=== PATIENT | male | born 1995 | race African-American/Black ===

== ENCOUNTER 2018-11-17 17:40 | Emergency (ER) | payer SELFPAY ==
[2018-11-17 17:47] VITALS: BP 129/65
[2018-11-17] MEDS ORDERED: IBUPROFEN 800 MG TABLET PO ONE (19:01)
--- NOTE | 2018-11-17 19:05 | ER Document Report ---
HPI - HPI Patient complains to provider of: Low back pain Time Seen by Provider: 11/17/18 18:46 Onset: This morning Onset/Duration: Sudden Quality of pain: Achy Severity: Moderate Pain Level: 3 Context: Patient presents emergency department with complaints of low left-sided back pain. Reports he was playing basketball then he started hurting his back. Denies other symptoms such as fever vomiting diarrhea denies urinary bowel incontinence or retention. Denies past medical history of injury. Associated Symptoms: None Exacerbated by: Denies Relieved by: Denies Similar symptoms previously: No Recently seen / treated by doctor: No Past Medical History - General Information source: Patient - Social History Smoking Status: Unknown if Ever Smoked Cigarette use (# per day): No Frequency of alcohol use: None Drug Abuse: None Occupation: [employer] Family History: None Patient has suicidal ideation: No Patient has homicidal ideation: No - Medical History Medical History: Negative Surgical Hx: Negative Vertical Provider Document - CONSTITUTIONAL Agree With Documented VS: Yes Exam Limitations: No Limitations General Appearance: WD/WN, No Apparent Distress - INFECTION CONTROL TRAVEL OUTSIDE OF THE [place] IN LAST 30 DAYS: No - HEENT HEENT: Atraumatic, Normocephalic - NECK Neck: Normal Inspection, Supple - RESPIRATORY Respiratory: No Respiratory Distress - CARDIOVASCULAR Cardiovascular: Regular Rate - GI/ABDOMEN Gastrointestinal: Abdomen Soft, Abdomen Non-Tender - BACK Back: Normal Inspection - No obvious deformity no erythema no swelling no warmth good distal movement and sensation no weakness reflexes normal - MUSCULOSKELETAL/EXTREMETIES Musculoskeletal/Extremeties: MAEW, FROM - NEURO Level of Consciousness: Awake, Alert, Appropriate Motor/Sensory: No Motor Deficit - DERM Integumentary: Warm, Dry Adult Front & Back Diagram: 1 - reports low back pain Course - Re-evaluation Re-evalutation: 11/17/18 19:05 Patient was instructed on ibuprofen for pain rest avoid basketball for the next few days. He verbalized understanding to all instructions Dictation of this chart was performed using voice recognition software; therefore, there may be some unintended grammatical errors. - Vital Signs Vital signs: Temp Pulse Resp BP Pulse Ox 98.6 F 73 16 129/65 H 99 11/17/18 17:46 11/17/18 17:46 11/17/18 17:46 11/17/18 17:46 11/17/18 17:46 Discharge - Discharge Clinical Impression: Low back muscle strain Condition: Stable Disposition: HOME, SELF-CARE Instructions: Low Back Pain ([facility]), Muscle Strain ([facility]), Ice Packs ([facility]), Use of [id number] Ibuprofen ([facility]) Additional Instructions: *You have been evaluated for low back pain *Take Motrin as indicated *Rest/Ice- heat as directed-rest no basketball *Follow up with a primary care provider within 5 days for recheck *Return to ED for worsening condition, changes, needs Forms: Return to Work
== END 2018-11-17 19:10 | disposition home or self-care (01) ==
LOC: ER 17:40
DX: S39.012A Strain of muscle, fascia and tendon of lower back, initial encounter (principal); X58.XXXA Exposure to other specified factors, initial encounter
CPT/HCPCS: 99283

== ENCOUNTER 2018-11-30 06:44 | Emergency (ER) | payer OTHER ==
[2018-11-30 06:52] VITALS: BP 152/62
[2018-11-30] MEDS ORDERED: KETOROLAC TROMETHAMINE 60 MG/2 ML SDV IM ONE (07:43)
--- NOTE | 2018-11-30 07:47 | RADIOLOGY REPORT (SQ) ---
EXAM DESCRIPTION: XR WRIST 3 OR MORE VIEWS BILATERAL COMPLETED DATE/TME: 11/30/2018 00:00 CLINICAL HISTORY: 23 years Male, injury COMPARISON: None. Findings: Well corticated cortical step-off at the base of the second metacarpus seen on one view is probably developmental and related to growth plate variance. Bones, joints, and soft tissues of the RIGHT XR WRIST 3 OR MORE VIEWS BILATERAL appear otherwise unremarkable. IMPRESSION: Well corticated cortical step-off at the base of the second metacarpus is probably developmental and related to growth plate variance. Please correlate with focus of symptomatology and mechanism of injury.
--- NOTE | 2018-11-30 08:04 | ER Document Report ---
Entered by ESPERANZA DAVE SCRIBE 11/30/18 0757 Acting as scribe for:JOZEF OBREGON MD ED General - General Chief Complaint: Wrist Pain Stated Complaint: WRIST PAIN Time Seen by Provider: 11/30/18 07:31 Mode of Arrival: Ambulatory Information source: Patient Notes: Patient is a 23 year old male presenting to the emergency department complaining of right wrist pain onset 3 days ago. Patient states he works [employer] and noticed right wrist pain and swelling after work. He denies any other focal symptoms. TRAVEL OUTSIDE OF THE [place] IN LAST 30 DAYS: No - Related Data Allergies/Adverse Reactions: No Known Allergies Allergy (Unverified 11/17/18 17:45) Past Medical History - General Information source: Patient - Social History Smoking Status: Current Every Day Smoker Cigarette use (# per day): Yes - Reports Black and Milds Chew tobacco use (# tins/day): No Frequency of alcohol use: None Occupation: [employer] Family History: None Patient has suicidal ideation: No Patient has homicidal ideation: No Review of Systems - Review of Systems Constitutional: No symptoms reported EENT: No symptoms reported Cardiovascular: No symptoms reported Respiratory: No symptoms reported Gastrointestinal: No symptoms reported Genitourinary: No symptoms reported Male Genitourinary: No symptoms reported Musculoskeletal: See HPI Skin: No symptoms reported Hematologic/Lymphatic: No symptoms reported Neurological/Psychological: No symptoms reported -: Yes All other systems reviewed and negative Physical Exam - Vital signs Vitals: Temp Pulse Resp BP Pulse Ox 97.8 F 64 20 152/62 H 99 11/30/18 06:48 11/30/18 06:48 11/30/18 06:48 11/30/18 06:48 11/30/18 06:48 - Notes Notes: GENERAL: Alert, interacts well. No acute distress. HEAD: Normocephalic, atraumatic. EYES: Pupils equal, round, and reactive to light. Extraocular movements intact. ENT: Oral mucosa moist, tongue midline. NECK: Full range of motion. Supple. Trachea midline. LUNGS: Clear to auscultation bilaterally, no wheezes, rales, or rhonchi. No respiratory distress. HEART: Regular rate and rhythm. No murmurs, gallops, or rubs. ABDOMEN: Soft, non-tender. Non-distended. Bowel sounds present in all 4 quadrants. No guarding, rigidity, or rebound. EXTREMITIES: Moves all 4 extremities spontaneously. No edema, radial and dorsalis pedis pulses 2/4 bilaterally. No cyanosis. Dorsal medial and ulnar aspect tender to palpation. No tenderness to the anatomical snuffbox. No swelling appreciated. NEUROLOGICAL: Alert and oriented x3. Normal speech. PSYCH: Normal affect, normal mood. SKIN: Warm, dry, normal turgor. No rashes or lesions noted. Course - Vital Signs Vital signs: Temp Pulse Resp BP Pulse Ox 97.8 F 64 20 152/62 H 99 11/30/18 06:48 11/30/18 06:48 11/30/18 06:48 11/30/18 06:48 11/30/18 06:48 - Laboratory Result Diagrams: 11/30/18 08:06 11/30/18 08:06 Laboratory results interpreted by me: 11/30/18 11/30/18 08:06 08:06 Hgb 13.4 L RDW 14.6 H Lymphocytes % 45.2 H ALT 15 L - Diagnostic Test Radiology reviewed: Image reviewed, Reports reviewed - Right wrist x-ray does not show an acute process. 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 Discharge - Discharge Clinical Impression: Right wrist sprain Qualifiers: Encounter type: initial encounter Qualified Code(s): S63.501A - Unspecified sprain of right wrist, initial encounter Condition: Stable Disposition: HOME, SELF-CARE Additional Instructions: Sprained Wrist: Your injury is a sprain. A sprain results from stretching or tearing of the ligaments, usually from a twisting injury. The ligaments will require time and protection in order to heal properly. Many sprains are quite disabling and should be taken seriously. The usual initial treatment of sprains is cold packs, elevation, and rest of the injured area. Your physician has assessed the seriousness of your ligament injury, and has outlined a treatment plan. Understand that this treatment may change, depending on how you progress. If a re-examination was recommended, it is important that you follow up as instructed. Call the doctor any time if there is severe pain, numbness, or loss of function in the injured area. Use the wrist splint to protect your wrist and prevent it from moving up and down for the next week. Take ibuprofen 800 mg every 8 hours, or Aleve 2 tablets every 12 hours. Try not to use your right hand at all for the next several days. Follow-up with a local medical doctor if not improving. RETURN TO THE EMERGENCY ROOM IF ANY NEW OR WORSENING SYMPTOMS. Forms: Return to Work Scribe Attestation: 11/30/18 08:16 I personally performed the services described in the documentation, reviewed and edited the documentation which was dictated to the scribe in my presence, and it accurately records my words and actions. I personally performed the services described in the documentation, reviewed and edited the documentation which was dictated to the scribe in my presence, and it accurately records my words and actions.
[2018-11-30 08:22] LABS: ABSOLUTE EOSINOPHILS # (AUTO) 0.1 10^3/uL (0.0-0.6); ABSOLUTE LYMPHOCYTES (AUTO) 2.3 10^3/uL (0.5-4.7); ABSOLUTE MONOCYTES (AUTO) 0.3 10^3/uL (0.1-1.4); ABSOLUTE NEUT (AUTO) 2.3 10^3/uL (1.7-8.2); BASOPHILS % (AUTO) 0.3 % (0-2); EOSINOPHILS % (AUTO) 1.3 % (0-6); HEMOGLOBIN 13.4 g/dL (13.5-17.0); LYMPHOCYTES % (AUTO) 45.2 % (13-45); MEAN CORPUSCULAR HEMOGLOBIN 30.6 pg (27.0-33.4); MEAN CORPUSCULAR HGB CONC 33.5 g/dL (32.0-36.0); MEAN CORPUSCULAR VOLUME 91 fl (80-97); MONOCYTES % (AUTO) 6.9 % (3-13); PLATELET COUNT 192 10^3/uL (150-450); RED BLOOD COUNT 4.38 10^6/uL (4.35-5.55); RED CELL DISTRIBUTION WIDTH 14.6 % (11.5-14.0); SEGMENTED NEUTROPHILS % (AUTO) 46.3 % (42-78); TOTAL CELLS COUNTED % (AUTO) 100 %
[2018-11-30 08:43] LABS: ALANINE AMINOTRANSFERASE 15 U/L (21-72); ALBUMIN 3.9 g/dL (3.5-5.0); ALKALINE PHOSPHATASE 56 U/L (38-126); ANION GAP 9 (5-19); ASPARTATE AMINO TRANSFERASE 17 U/L (17-59); BILIRUBIN,DIRECT 0.2 mg/dL (0.0-0.4); BLOOD UREA NITROGEN 13 mg/dL (7-20); CALCIUM 9.5 mg/dL (8.4-10.2); CARBON DIOXIDE 29 mmol/L (22-30); CHLORIDE 104 mmol/L (98-107); CREATINE KINASE 126 U/L (55-170); GLUCOSE 90 mg/dL (75-110); POTASSIUM 4.8 mmol/L (3.6-5.0); SODIUM 142.2 mmol/L (137-145); TOTAL PROTEIN 6.6 g/dL (6.3-8.2)
== END 2018-11-30 09:51 | disposition home or self-care (01) ==
LOC: ER 06:44
DX: S63.501A Unspecified sprain of right wrist, initial encounter (principal); M25.531 Pain in right wrist; M79.89 Other specified soft tissue disorders; X58.XXXA Exposure to other specified factors, initial encounter; F17.210 Nicotine dependence, cigarettes, uncomplicated
CPT/HCPCS: 99283; 96372; 36415; 82550; 85025; 80053; 73110; L3908; J1885